=== PATIENT | female | born 2000 | race Caucasian/White ===

== ENCOUNTER → 2024-02-04 08:53 | Outpatient (REF) | payer BC, SELFPAY | LOC: HWRAD 08:53 | PROVIDERS: ATTENDING PHYSICIAN Obstetrics & Gynecology Gynecology; FAMILY PHYSICIAN Student in an Organized Health Care Education/Training Program | DX: R10.2 Pelvic and perineal pain (principal) | CPT/HCPCS: 76830; 76856 ==